=== PATIENT | female | born 1965 | race Caucasian/White ===

== ENCOUNTER 2017-05-11 21:46 | Emergency (ER) | payer BC ==
[2017-05-12] MEDS ORDERED: IBUPROFEN 600 MG TAB PO STA (00:08)
[2017-05-12] MEDS ORDERED: traMADol 50 MG TAB PO STA (00:08)
--- NOTE | 2017-05-12 00:08 | ED ---
Upper Extremity HPI - General Chief Complaint: Extremity Injury, Upper Stated Complaint: left hand injury Time Seen by Provider: 05/11/17 22:55 Source: patient Mode of arrival: ambulatory Limitations: no limitations - History of Present Illness Initial Comments: This patient is a 51-year-old woman who states that she had a fall tonight. The patient states that she was trying to break some branches, she fell and tried to stop herself with her outstretched left hand. She states that there was pain in her wrist and she noted swelling. Since that time she has worsening pain if she attempts to move her left wrist. Patient denies previous fracture or surgery. Denies weakness or numbness. MD Complaint: Injury to:: left, wrist -: hour(s) Other Extremity Injury: Wrist: Left Handedness: right Place: outdoors Improves With: none Worsens With: movement of extremity Context: fall Associated Symptoms: denies other symptoms - Related Data Previous Rx's Medication Instructions Recorded Acetaminophen-Codeine 300-30mg 1 tab PO Q4H PRN #12 tablet 05/12/17 [Tylenol w/codeine #3] Ibuprofen [Motrin] 600 mg PO Q8HR PRN #20 tab 05/12/17 Allergies Allergy/AdvReac Type Severity Reaction Status Date / Time No Known Allergies Allergy Verified 05/11/17 22:20 Review of Systems ROS Statement: Those systems with pertinent positive or pertinent negative responses have been documented in the HPI. ROS Other: All systems not noted in ROS Statement are negative. Constitutional: Denies: weakness Musculoskeletal: Reports: as per HPI, joint swelling, arthralgia Skin: Denies: lesions Neurological: Denies: weakness, numbness, paresthesias Past Medical History Past Medical History: No Reported History History of Any Multi-Drug Resistant Organisms: None Reported Past Surgical History: Hysterectomy Past Psychological History: No Psychological Hx Reported Smoking Status: Current every day smoker Past Alcohol Use History: None Reported Past Drug Use History: None Reported General Exam Limitations: no limitations General appearance: alert, in no apparent distress Head exam: Present: atraumatic Extremities exam: Present: tenderness, other (There is swelling and tenderness to the dorsal aspect of the left wrist.) Left Upper Arm exam: Present: normal inspection, full ROM Elbow exam: Present: normal inspection, full ROM. Absent: tenderness, swelling Hand Wrist exam: Present: tenderness, swelling. Absent: abrasion, laceration, ecchymosis, deformity, dislocation Vascular: Present: normal capillary refill, radial pulse (Normal), ulnar pulse ( Normal). Absent: vascular compromise, Pallo, pulse deficit radial art, pulse deficit ulnar art Neurological exam: Absent: motor sensory deficit Skin exam: Present: warm, dry, intact, normal color. Absent: rash Course Vital Signs 05/11/17 22:17 Temperature 97.8 F Pulse Rate 71 Respiratory 16 Rate Blood Pressure 122/73 O2 Sat by Pulse 98 Oximetry Disposition Clinical Impression: Left wrist injury Disposition: HOME SELF-CARE Condition: Good Instructions: Wrist Injury (ED) Prescriptions: Acetaminophen-Codeine 300-30mg [Tylenol w/codeine #3] 1 tab PO Q4H PRN #12 tablet PRN Reason: Pain Ibuprofen [Motrin] 600 mg PO Q8HR PRN #20 tab PRN Reason: Pain Referrals: None,Stated [Primary Care Provider] - 1-2 days Pelon Zapata MD [Medical Doctor] - 1-2 days
--- NOTE | 2017-05-12 00:19 | XR ---
EXAMINATION TYPE: XR wrist complete LT DATE OF EXAM: 05/12/2017 COMPARISON: NONE HISTORY: Wrist pain TECHNIQUE: 4 views FINDINGS: I see no fracture nor dislocation. Carpal bones appear intact. Joint spaces appear normal. IMPRESSION: Negative left wrist exam
[2017-05-12 00:54] VITALS: BP 125/70; PULSE 81; RESP 18; TEMP 97
== END 2017-05-12 00:52 | disposition home or self-care (01) ==
LOC: EC 21:46
DX: S69.92XA Unspecified injury of left wrist, hand and finger(s), initial encounter (principal); F17.200 Nicotine dependence, unspecified, uncomplicated; W18.39XA Other fall on same level, initial encounter; Y93.89 Activity, other specified; Y92.096 Garden or yard of other non-institutional residence as the place of occurrence of the external cause
CPT/HCPCS: 99283

== ENCOUNTER 2021-07-10 13:59 | Emergency (ER) | payer BC ==
[2021-07-10 14:38] VITALS: RESP 18
[2021-07-10] MEDS ORDERED: SODIUM CHLORIDE 0.9% 1,000 ML IV ONE (16:58)
[2021-07-10] MEDS ORDERED: ONDANSETRON 4 MG/2 ML VIAL IVP STA (16:58)
[2021-07-10] MEDS ORDERED: IBUPROFEN IV 800 MG in SODIUM CHLORIDE 0.9% 250 ML IV ONE (16:58)
--- NOTE | 2021-07-10 17:05 | ED ---
General Adult HPI - General Chief complaint: Fever Stated complaint: COVID+, Fever Time Seen by Provider: 07/10/21 16:45 Source: patient Mode of arrival: ambulatory Limitations: no limitations - History of Present Illness Initial comments: 55 year-old female patient presents for evaluation of high fevers, left sided chest discomfort after testing positive on a home test for COVID-19. Patient states she started with nasal congestion and weakness on Saturday 07/07. States today her fevers spiked at home. States that she lost taste and smell. Has no appetite. Feels dehydrated. She is taking mucinex with tylenol. No motrin. States she is otherwise healthy. Denies vomiting or diarrhea. States she has no appetite. Denies any rash. Denies significant cough or shortness of breath. - Related Data Previous Rx's Medication Instructions Recorded Acetaminophen-Codeine 300-30mg 1 tab PO Q4H PRN #12 tablet 05/12/17 [Tylenol w/codeine #3] Ibuprofen [Motrin] 600 mg PO Q8HR PRN #20 tab 05/12/17 Dexamethasone 6 mg PO DAILY #9 tablet 07/10/21 guaiFENesin-DM 600/30MG [Mucinex 2 each PO Q12HR PRN #20 tab 07/10/21 Dm] Allergies Allergy/AdvReac Type Severity Reaction Status Date / Time No Known Allergies Allergy Verified 07/10/21 14:34 Review of Systems ROS Statement: Those systems with pertinent positive or pertinent negative responses have been documented in the HPI. ROS Other: All systems not noted in ROS Statement are negative. Past Medical History Past Medical History: No Reported History History of Any Multi-Drug Resistant Organisms: None Reported Past Surgical History: Hysterectomy Past Psychological History: No Psychological Hx Reported Smoking Status: Current every day smoker Past Alcohol Use History: None Reported Past Drug Use History: None Reported General Exam Limitations: no limitations General appearance: alert, in no apparent distress, other (This is a well- developed, well-nourished adult female in no acute distress.) Respiratory exam: Present: other (Coarse lung sounds on the left). Absent: respiratory distress, wheezes, rales, rhonchi, stridor Cardiovascular Exam: Present: regular rate, normal rhythm, normal heart sounds. Absent: systolic murmur, diastolic murmur, rubs, gallop, clicks GI/Abdominal exam: Present: soft, normal bowel sounds. Absent: distended, tenderness, guarding, rebound, rigid Neurological exam: Present: alert, oriented X3, CN II-XII intact Psychiatric exam: Present: normal affect, normal mood Skin exam: Present: warm, dry, intact, normal color. Absent: rash Course Vital Signs 07/10/21 07/10/21 07/10/21 14:34 17:46 19:00 Temperature 100.6 F H 101.2 F H 100.0 F H Pulse Rate 101 H 99 78 Respiratory 18 18 18 Rate Blood Pressure 111/59 117/68 106/64 O2 Sat by Pulse 96 97 94 L Oximetry Medical Decision Making - Medical Decision Making 55 year-old female patient presents to the emergency department for evaluation of fever, cough, shortness of breath. She tested positive for COVID. Chest xray showed left sided pneumonia. She is given IV fluids and IV steroid. She did receive monoclonal antibodies without difficulty. She'll be discharged pop with primary care physician for recheck in 1-2 days. Return parameters were discussed in detail. She verbalizes understanding and agrees with this plan. My attending is Dr. Mead. - Lab Data Lab Results 07/10/21 Range/Units 17:13 Coronavirus (PCR) Detected A (Not Detectd) - Radiology Data Radiology results: report reviewed, image reviewed Two-view x-ray of the chest is obtained. Report was reviewed in its entirety. Impression by Dr. Corrales shows left upper lobe pneumonia. Disposition Clinical Impression: COVID-19, Pneumonia due to COVID-19 virus Disposition: HOME SELF-CARE Condition: Good Instructions (If sedation given, give patient instructions): Coronavirus Disease 2019 (COVID-19), Viral Pneumonia (ED), Fever in Adults (ED) Additional Instructions: Tips to help you feel better: -Maintain adequate fluid intake - especially water. -Rest, you are healing your body will require extra sleep. -Eat even if you do not feel like it - broth, jello, toast are fine if you cannot eat full meals. -Take tylenol and motrin alternating (if you have no allergies or have not been instructed to avoid these medications) to help with body aches and fevers. -Obtain over the counter vitamin C, zinc, and vitamin D3. -Take medications as prescribed. Follow-up with your primary care physician for recheck in 1-2 days. Return for any new, worsening, or concerning symptoms. Prescriptions: Dexamethasone 6 mg PO DAILY #9 tablet guaiFENesin-DM 600/30MG [Mucinex Dm] 2 each PO Q12HR PRN #20 tab PRN Reason: Cough Is patient prescribed a controlled substance at d/c from ED?: No Referrals: Nonstaff,Physician [Primary Care Provider] - 1-2 days Time of Disposition: 20:48
--- NOTE | 2021-07-10 17:22 | XR ---
EXAMINATION TYPE: XR chest 2V DATE OF EXAM: 07/10/2021 COMPARISON: NONE HISTORY: Cough. Left side pain TECHNIQUE: 2 views FINDINGS: There is some airspace consolidation in the left upper lobe along the major fissure extendi ng into the lingula left upper lobe. Right lung is clear. Heart and mediastinum are normal. There is no pleural effusion. Bony thorax is intact. IMPRESSION: Left upper lobe pneumonia.
[2021-07-10] MEDS ORDERED: SODIUM CHLORIDE 0.9% 50 ML IVPB ONE (18:15)
[2021-07-10] MEDS ORDERED: BAMLANIVIMAB (EUA) 700 MG, ETESEVIMAB (EUA) 1,400 MG in SODIUM CHLORIDE 0.9% 50 ML IVPB ONE (18:30)
[2021-07-10] MEDS ORDERED: ACETAMINOPHEN TAB 500 MG TAB PO STA (18:32)
[2021-07-10] MEDS ORDERED: DEXAMETHASONE SOD PHOSPHATE 10 MG/ML 1 ML VIAL IVP STA (19:08)
[2021-07-10 19:31] VITALS: TEMP 100
[2021-07-10 21:14] VITALS: BP 110/92; PULSE 73
== END 2021-07-10 21:14 | disposition home or self-care (01) ==
LOC: EC 13:59
DX: U07.1 COVID-19 (principal); J12.82 Pneumonia due to coronavirus disease 2019; F17.200 Nicotine dependence, unspecified, uncomplicated; Z90.710 Acquired absence of both cervix and uterus
CPT/HCPCS: 96361; 96374; 96375; 99285; M0245; 71046; 87635